=== PATIENT | male | born 2000 | race Caucasian/White ===

== ENCOUNTER 2023-03-05 12:32 | Emergency (ER) | payer OTHER, SELFPAY ==
--- NOTE | ~2023-03-05 | XR_ITS ---
Right Shoulder Technique: AP views were obtained. Clinical History: Pain Findings: No fracture or dislocation is seen. Osseous alignment is anatomic. The glenohumeral and acr omioclavicular joint spaces are preserved. Soft tissues are unremarkable. Impression: No significant abnormality seen. Reviewed, dictated and finalized at [facility]. Impression: No significant abnormality seen.
[2023-03-05 12:35] VITALS: BP 131/80; PULSE 83; RESP 14; TEMP 36.3; O2SAT 98
--- NOTE | 2023-03-05 12:39 | ED.UPPEXIN ---
HPI - Extremity Injury (Upper) General Chief Complaint: Extremity Injury, Upper Stated Complaint: shoulder injury Time Seen by Provider: 03/05/23 12:37 Source: patient Mode of arrival: ambulatory Limitations: no limitations History of Present Illness HPI narrative: 22-year-old male presents to the ER with a 4 day history of -- right shoulder pain. On Saturday a large wooden board fell on his right shoulder following which she has had the pain. No bruising noted. -- Numbness and tingling radiating down right shoulder. MD complaint: injury to: right and shoulder Onset (ago): day(s) ( Started 4 days ago) Other Extremity Injury: Right: shoulder Other injuries: none Handedness: right Place: work Severity: mild Relieving factors: immobilization Exacerbating factors: movement of extremity Context: direct blow Related Data Allergies Allergy/AdvReac Type Severity Reaction Status Date / Time pseudoephedrine AdvReac Palpitation Verified 03/05/23 12:35 [facility] Review of Systems Review of Systems: All systems reviewed & are unremarkable except as noted in HPI and below Constitutional: Constitutional: Reports as per HPI Exam Const: General: healthy appearing and no acute distress Nutritional Appearance: well nourished Orientation/consciousness: patient oriented x3 Limitations: no limitations HENMT: Head: normal to inspection Ears: external ears normal Face/Nose/Sinus: Normal external nose present Face and sinus: normal facial exam Mouth: Yes Normal oral and palatal mucosa present Throat: posterior oropharynx normal Eyes: Conjunctivae: conjunctivae normal Pupils: Equal, round and reactive pupils present EOM: EOMs intact bilaterally Direct Ophthalmoscopy: no photophobia Neck: Neck: normal visual inspection, no lymphadenopathy and no meningeal signs Chest: Chest palpation & inspection: normal inspection of the chest Resp: Effort & Inspection: normal respiratory effort Auscultation: clear to auscultation bilaterally Cardio: Rate: regular rate Rhythm: regular rhythm GI: GI Palp: Yes Soft to palpation Auscultation: normal bowel sounds : General: Yes no CVA tenderness Back/Spine/Pelvis: Back: no CVA tenderness Skin: General skin exam: normal color Rashes: no rashes Wounds: no wounds Other: no bruising noted over the right shoulder. Neuro: General: patient oriented x3, moves all extremities, no meningeal signs, no focal motor deficits and CN's II-XI intact bilaterally Cranial nerves: Yes Nystagmus not present Speech: normal speech Gait exam (Neuro): Normal gait present Extrem: General: normal to inspection and no clubbing, cyanosis or edema Other: Right shoulder-- no bony tenderness noted. Normal range of motion. Psych: Mental Status: mental status grossly normal Affect: normal affect Attitude: cooperative Course Course Emergency Course: right shoulder pain-- Patient does not have any bony / ligamentous tenderness. No restriction of range of motion. No bruising. Chest x-ray was unremarkable. Vital Signs Vital signs: Vital Signs Temperature 36.3 C L 03/05/23 12:35 Pulse Rate 83 03/05/23 12:35 Respiratory Rate 14 03/05/23 12:35 Blood Pressure 131/80 03/05/23 12:35 Pulse Oximetry 98 03/05/23 12:35 Oxygen Delivery Room Air 03/05/23 12:35 Temperature 36.3 C L 03/05/23 12:35 Pulse Rate 83 03/05/23 12:35 Respiratory Rate 14 03/05/23 12:35 Blood Pressure 131/80 03/05/23 12:35 Pulse Oximetry 98 03/05/23 12:35 Oxygen Delivery Room Air 03/05/23 12:35 MDM - Extremity Injury (Upper) MDM Narrative Medical decision making narrative: Shoulder pain Differential Diagnosis Differential diagnosis: Likely dislocation of shoulder, fracture of humerus and other ( shoulder sprain) Discharge Plan Discharge Clinical Impression: Acute shoulder pain Qualifiers: Laterality: right Qualified Code(s): M25.511 - Pain in right shoulder
[2023-03-05 13:53] VITALS: BP 120/76; PULSE 78; RESP 14; TEMP 36.4; O2SAT 99
== END 2023-03-05 14:00 | disposition home or self-care (01) ==
PROVIDERS: Emergency Provider Internal Medicine Critical Care Medicine
DX: M25.511 Pain in right shoulder (principal); W22.8XXA Striking against or struck by other objects, initial encounter
CPT/HCPCS: 73030; 99283

== ENCOUNTER 2023-04-30 08:49 | Outpatient (CLI) | payer BC, SELFPAY ==
[2023-04-30 09:10] LABS: Basophils Absolute Auto 0.04 K/mm3 (0.00-0.10); Basophils Percent Auto 0.8 % (0.0-1.0); Eosinophils Absolute Auto 0.14 K/mm3 (0.02-0.50); Eosinophils Percent Auto 2.7 % (1.0-6.0); Hematocrit 46.8 % (40.0-54.0); Hemoglobin 16.2 g/dL (14.0-18.0); Immature Granulocyte Absolute 0.02 K/mm3 (0.00-0.00); Immature Granulocyte Percent A 0.4 % (0.0-0.0); Lymphocytes Absolute Auto 1.26 K/mm3 (1.10-4.50); Lymphocytes Percent Auto 24.1 % (18.0-42.0); Mean Corpuscular HGB Conc 34.6 g/dL (32.0-36.0); Mean Corpuscular Hemoglobin 30.3 pg (27.0-31.0); Mean Corpuscular Volume 87.6 fL (78.0-102.0); Mean Platelet Volume 9.2 fl (8.7-11.0); Monocytes Absolute Auto 0.25 K/mm3 (0.10-0.90); Monocytes Percent Auto 4.8 % (2.0-11.0); Neutrophils Absolute Auto 3.5 K/mm3 (1.7-7.2); Neutrophils Percent Auto 67.2 % (50.0-70.0); Platelet Count Result 253 K/mm3 (150-420); Red Blood Count 5.34 M/mm3 (4.70-6.10); Red Cell Distribution Width 12.8 % (11.6-14.4); White Blood Count 5.2 K/mm3 (4.8-10.8)
[2023-04-30 09:57] LABS: Alanine Aminotransferase 17 U/L (16-63); Albumin Level 4.5 g/dL (3.4-5.0); Alkaline Phosphatase 83 U/L (46-116); Anion Gap 5 mmol/L (8-16); Aspartate Amino Transferase 14 U/L (15-37); Bilirubin,Total 1.1 mg/dL (0.00-1.00); Blood Urea Nitrogen 14 mg/dL (7-18); Calcium 9.7 mg/dL (8.5-10.1); Carbon Dioxide 33 mmol/L (21-32); Chloride 105 mmol/L (98-108); Estimated Glomerular Filt Rate > 60; Glucose 82 mg/dL (70-99); Osmolality Calculated 295 mOsm/kg (285-295); Potassium 4.5 mmol/L (3.5-5.1); Sodium 143 mmol/L (136-145); Total Protein 7.2 g/dL (6.4-8.2)
== END 2023-04-30 08:50 | disposition home or self-care (01) ==
LOC: CHSLAB 08:51
PROVIDERS: PCP Family Medicine; Visit Provider Family Medicine
DX: F41.9 Anxiety disorder, unspecified (principal); F32.A Depression, unspecified
CPT/HCPCS: 36415; 80053; 85025

== ENCOUNTER 2023-07-11 12:29 | Emergency (ER) | payer OTHER, BC, SELFPAY ==
--- NOTE | ~2023-07-11 | XR_ITS ---
XR ribs LT 2V w CXR 2V DATE: 07/11/2023 13:32 INDICATION: Left posterolateral rib pain TECHNIQUE: PA and lateral views COMPARISON: None FINDINGS: Normal heart size. No hilar or mediastinal enlargement. No pulmonary infiltrate or consol idation, pulmonary vascular congestion or pleural effusion or pneumothorax. Levoscoliosis of the thoracolumbar spine. IMPRESSION: No active cardiopulmonary disease Reviewed, dictated and finalized at location [facility].
[2023-07-11 12:33] VITALS: BP 139/107; PULSE 84; RESP 20; TEMP 36.5; O2SAT 98
--- NOTE | 2023-07-11 12:54 | ED.GENADULT ---
HPI - General Adult General Chief complaint: Unspecified Stated complaint: rib pain after lifting heavy Time Seen by Provider: 07/11/23 12:48 History of Present Illness HPI narrative: 23-year-old male reports for evaluation for sudden onset left posterior rib pain that occurred approximately 3 hours ago. Patient states he was lifting up heavy bags of concrete over his shoulder, then within minutes he felt a sharp pain in his left posterior ribs. States the pain is worse with movement and deep inspiration. He denies difficulty breathing but states it hurts to breathe. He denies anterior chest pain, loss of consciousness, cough, hemoptysis, history of VTE, lower extremity edema, recent surgeries or hospitalizations, fever, hormone use. Related Data Allergies Allergy/AdvReac Type Severity Reaction Status Date / Time pseudoephedrine AdvReac Palpitation Verified 07/11/23 12:30 [[facility] s Review of Systems Review of Systems: CONSTITUTIONAL: Denies fever, chills EYES: Denies visual changes, redness, or discharge. ENT: Denies rhinorrhea, congestion, sore throat, or otalgia. CARDIOVASCULAR: See HPI RESPIRATORY: See HPI GASTROINTESTINAL: Denies abdominal pain, nausea, vomiting, or diarrhea. GENITOURINARY: Denies dysuria or hematuria. SKIN: Denies rash or itching. MUSCULOSKELETAL: Denies back pain, joint pain, or myalgia. NEUROLOGIC: Denies headache, numbness, dizziness, or weakness. PSYCHIATRIC: Denies anxiety or depression. [facility] Family History Family History Grandparent Carcinoma of colon Father Diabetes mellitus Social History Social History Smoking status: Never smoker Tobacco type: e-cigarettes/vaping Alcohol intake: current Drinks per week: 1 Exam Narrative: GENERAL: Patient appears uncomfortable. Splinting with deep inspiration HEAD: Normocephalic EYES: PERRLA ENT: Nares clear. Mucous membranes moist. Oropharynx without tonsillar hypertrophy exudate or other lesions. NECK: Supple. CHEST: No respiratory distress. Clear to auscultation, no adventitious breath sounds. Tenderness to the posterior lateral left lower ribs. No overlying skin changes, crepitus, step-offs or deformities. BACK: No midline thoracolumbar spinous tenderness, step-offs or deformities. HEART: Regular rate and rhythm. No murmur heard. Normal peripheral pulses. ABDOMEN: Soft, nontender, normal active bowel sounds. No CVA tenderness. EXTREMITIES: Normal range of motion. No edema. Negative Homans bilaterally. SKIN: Warm, dry, no rash. NEURO: No focal deficits. Alert and oriented x3. PSYCH: Normal mood and affect. Course Vital Signs Vital signs: Vital Signs Temperature 97.7 F 07/11/23 12:33 Pulse Rate 84 07/11/23 12:33 Respiratory Rate 20 07/11/23 12:33 Blood Pressure 139/107 H 07/11/23 12:33 Pulse Oximetry 98 07/11/23 12:33 Oxygen Delivery Room Air 07/11/23 12:33 Temperature 97.7 F 07/11/23 12:33 Pulse Rate 84 07/11/23 12:33 Respiratory Rate 20 07/11/23 12:33 Blood Pressure 139/107 H 07/11/23 12:33 Pulse Oximetry 98 07/11/23 12:33 Oxygen Delivery Room Air 07/11/23 12:33 Medical Decision Making [facility] Narrative Medical decision making narrative: 23-year-old male reports for evaluation of sharp pleuritic left posterior lateral rib pain after he lifted a heavy bag of concrete over his shoulder 3 hours prior to arrival. See HPI for further history. Vitals significant for mildly elevated blood pressure, otherwise unremarkable. Exam significant for the above. PE less likely given he is not hypoxic, no tachycardia, pain occurred after injury and he is PERC negative. Labs are unremarkable. Chest and rib x-ray showed no acute cardiopulmonary abnormality or rib fracture. Troponin normal. EKG shows sinus rhythm with incomplete right bundle branch block, n
--- NOTE | 2023-07-11 12:55 | ECG_ITS ---
Measurements Intervals [place] Rate: 58 P: 39 WA: 124 QRS: 89 QRSD: 98 T: 47 QT: 369 QTc: 365 Interpretive Statements SINUS BRADYCARDIA INCOMPLETE RIGHT BUNDLE BRANCH BLOCK BORDERLINE ECG NO PREVIOUS ECG AVAILABLE FOR COMPARISON Electronically Signed On 07-11-2023 14:23:39 CDT by Brien Forman D.O.
[2023-07-11] MEDS: CYCLOBENZAPRINE HCL 10 MG TABLET PO (13:16)
[2023-07-11] MEDS: KETOROLAC 30 MG/ML VIAL (*BKC) IV PUSH (13:17)
[2023-07-11] MEDS: LIDOCAINE 5% PATCH 1 PATCH TRANSDERM (13:17)
[2023-07-11 13:20] LABS: Basophils Percent Auto 0.7 % (0.2-1.2); Eosinophils Absolute Auto 0.1 K/mm3 (0-0.3); Eosinophils Percent Auto 1.7 % (0-4.4); Hematocrit 44.7 % (42.0-52.0); Hemoglobin 15.7 g/dL (14.0-18.0); Immature Granulocyte Absolute 0.01 K/mm3 (0.00-0.031); Immature Granulocyte Percent A 0.2 % (0-0.5); Lymphocytes Absolute Auto 1.75 K/mm3 (0.9-3.2); Lymphocytes Percent Auto 30.4 % (18.3-44.2); Mean Corpuscular HGB Conc 35.1 g/dl (32-36); Mean Corpuscular Hemoglobin 30.3 pg (26-34); Mean Corpuscular Volume 86.1 fl (80-100); Mean Platelet Volume 8.9 fl (7.4-10.4); Monocytes Absolute Auto 0.3 K/mm3 (0.1-0.6); Monocytes Percent Auto 4.3 % (2.6-8.5); Neutrophils Absolute Auto 3.6 K/mm3 (1.3-6.7); Neutrophils Percent Auto 62.7 % (45.5-73.1); Platelet Count Result 204 k/mm3 (150-375); Red Blood Count 5.19 M/mm3 (4.6-6.20); Red Cell Distribution Width 13.3 % (11.5-14.5); White Blood Count 5.8 K/mm3 (4.5-10.0)
[2023-07-11 13:28] LABS: Alanine Aminotransferase 22 U/L (6-50); Albumin Level 4.8 g/dL (3.5-5.1); Alkaline Phosphatase 60 U/L (38-126); Anion Gap 5 mmol/L (8-16); Aspartate Amino Transferase 26 U/L (17-59); Bilirubin,Total 1.7 mg/dL (0.2-1.3); Blood Urea Nitrogen 16 mg/dL (9-20); Calcium 9.7 mg/dL (8.4-10.2); Carbon Dioxide 32 mmol/L (22-30); Chloride 100 mmol/L (98-107); Estimated CRCL calculation 103 ml/min; Estimated Glomerular Filt Rate > 60; Glucose 92 mg/dL (65-110); Potassium 4.1 mmol/L (3.4-5.0); Sodium 137 mmol/L (137-145)
[2023-07-11 13:39] LABS: Troponin I < 0.012 ng/mL (0.000-0.034)
[2023-07-11 14:23] LABS: Appearance Urine Clear (Clear); Bilirubin Urine Negative (Negative); Blood Urine Negative (Negative); Color Urine Yellow (Yellow); Glucose Urine UA Negative (Negative); Ketones Urine Negative (Negative); Leukocyte Esterase Ur Negative LEU/UL (Negative); Nitrate Urine Negative (Negative); Protein Urine Negative (Negative); Specific Grav Ur 1.026 (1.001-1.035)
[2023-07-11 14:35] LABS: Add Urine Microscopic? NO
== END 2023-07-11 15:04 | disposition home or self-care (01) ==
PROVIDERS: Emergency Provider Physician Assistant; PCP Family Medicine
DX: R07.81 Pleurodynia (principal); F17.290 Nicotine dependence, other tobacco product, uncomplicated; R00.1 Bradycardia, unspecified; I45.10 Unspecified right bundle-branch block
CPT/HCPCS: 36415; 71046; 71100; 80053; 81003; 84484; 85025; 93005; 96374; 99284; A9270; J1885